=== PATIENT | female | born 1990 | race Caucasian/White ===

== ENCOUNTER 2017-08-20 23:17 | Emergency (ER) | payer OTHER ==
[~2017-08-20] VITALS: Ht 165.1 cm; Wt 52.6 kg
[~2017-08-20 23:17] MED LIST: BACTRIM DS 8001 TAB PO; PYRIDIUM100 MG PO
[2017-08-20 23:40] VITALS: BP 144/94
--- NOTE | 2017-08-21 00:14 | ED GENERAL ADULT ---
History of Present Illness General Chief Complaint: Allergy Symptoms Stated Complaint: ? ALLERGIC REACTION RASH,DIFF BREATHING PER P Source: patient, family Exam Limitations: no limitations Vital Signs & Intake/Output Vital Signs & Intake/Output Vital Signs Date Time Temp Pulse Resp B/P B/P Pulse O2 O2 Flow FiO2 Mean Ox Delivery Rate 08/20 2340 98.3 114 18 144/94 93 ED Intake and Output 08/21 0000 08/20 1200 Intake Total Output Total Balance Patient 116 lb Weight Weight Reported by Patient Measurement Method Allergies Coded Allergies: No Known Allergies (08/20/17) Reconcile Medications Cephalexin (Keflex) 500 MG CAPSULE 1 CAP PO TID UTI PHENAZOPYRIDINE HCL (Pyridium) 100 MG TAB 1 TAB PO TID DYSURIA Prednisone 50 MG TABLET 1 TAB PO DAILY ALLERGY Sulfamethoxazole/Trimethopri (Bactrim Ds 800 MG-160 MG) 1 TAB TAB 1 TAB PO BID UTI Triage Note: TRIAGE: PATIENT TO ER FROM HOME W/ HIVES TO ENTIRE CHEST, THROAT AND EARS, ALSO REPORTING SOB. LUNGS CTA, NO WHEEZING NOTED. PATIENT REPORTS SLIGHT ITCHING. SPEECH CLEAR, NO ACUTE DISTRESS, NO TONGUE SWELLING. ONSET OF ITCHING TO BILATERAL PALMS APPROX 30 MINUTES AFTER EATING COCONUT ICE CREAM (HAS EATEN IN PAST W/O DIFFICULTIES, NKA) THEN BEGAN W/ SUDDEN ONSET OF ALL OTHER HIVES. Triage Nurses Notes Reviewed? yes Onset: Abrupt Duration: hour(s): (2-3), better, continues in ED Timing: single episode today Injury Environment: home Severity: mild, moderate No Modifying Factors: none LMP (ages 10-50): unknown : No Patient currently breastfeeds: No HPI: 26 year old female with no medcal hx presents for eval of itchy rash anmd hives. pt rpeorts she felt like she was devolping a uti today with frequency urgency and dysuria. she had been takign azo without improvmenet. she had a siongle dose of cipro in her hourse whcih she took this morning for the uti. she has taken cipro once other time in the past without any issue. several hours later she devolped the hioves. they are located on the bilateral extremities and truunk. no swelling or lips tongue or thorat. she did report some sob when symptoms iniitally started but this has gone away. no previous hx of reactions. never used epi pen. no fever abdominal pain back antelmo or vaginal discharge. no other new exposures. (Bryon Dick) Past History Travel History Traveled to [place] past 21 day No Medical History Any Pertinent Medical History? see below for history Neurological: NONE EENT: NONE Cardiovascular: NONE Respiratory: NONE Gastrointestinal: NONE Hepatic: NONE Renal: NONE Musculoskeletal: NONE Psychiatric: NONE Endocrine: NONE Blood Disorders: NONE Cancer(s): NONE SUPERVISOR TESTING/Reproductive: NONE Surgical History Surgical History: non-contributory Psychosocial History What is your primary language Paraguayan Tobacco Use: Current Daily Use Daily Tobacco Use Amount/Type: =< 4 Cigarettes daily Family History Hx Contributory? No (Bryon Dick) Review of Systems Review of Systems Constitutional: Reports: no symptoms. EENTM: Reports: no symptoms. Respiratory: Reports: no symptoms. Cardiovascular: Reports: no symptoms. GI: Reports: no symptoms. Genitourinary: Reports: see HPI, dysuria, frequency, urgency. Musculoskeletal: Reports: no symptoms. Skin: Reports: see HPI, rash. Neurological/Psychological: Reports: no symptoms. Hematologic/Endocrine: Reports: no symptoms. Immunologic/Allergic: Reports: no symptoms. All Other Systems: Reviewed and Negative (Bryon Dick) Physical Exam Physical Exam General Appearance: well developed/nourished, no apparent distress, alert, awake Head: atraumatic, normal appearance Eyes: Bilateral: normal appearance, PERRL, EOMI. Ears, Nose, Throat: normal pharynx, normal ENT inspection, hearing grossly normal, no swelling of lips, tongue or throat no stridor. Neck: normal inspection, supple, full range of motion Respiratory: normal breath sounds, chest non-tender, no respiratory distress, lungs clear, no wheezing Cardiovascular: regular rate/rhythm, normal peripheral pulses Peripheral Pulses: 2+ radial (R), 2+ radial (L) Gastrointestinal: soft, non-tender Back: normal inspection, normal range of motion, no cvat Extremities: normal inspection, normal range of motion, no edema Neurologic/Psych: no motor/sensory deficits, awake, alert, oriented x 3, normal gait, normal mood/affect Skin: intact, normal color, warm/dry, rash Lymphatic: no anterior cervical corina Comments: there are multipel erythematous weals located on the bilateral extremities trunk and neck. no underlying erythema or discharge. no broken skin. Core Measures ACS in differential dx? No CVA/TIA Diagnosis: No Sepsis Present: No Sepsis Focused Exam Completed? No (Bryon Dick) Progress Differential Diagnoses I considered the following diagnoses in my evaluation of the patient: [allergic reaction, medication reaction, uti,. pyelo, uitcaria, kidney stones] Plan of Care: Orders Procedure Date/time Status Add-on Test (ER Only) 08/21 0026 Active URINE 08/20 235 Active URINALYSIS 08/20 235 Active Current Medications Sig/Ginger Start time Last Medication Dose Stop Time Status Admin Diphenhydramine HCl 50 MG ONCE ONE 08/21 0015 UNVr 08/21 (Benadryl) 08/21 0016 0014 Famotidine 20 MG ONCE ONE 08/21 0015 UNVr 08/21 (Pepcid) 08/21 0016 0014 Prednisone 40 MG ONCE ONE 08/21 0015 UNVr 08/21 08/21 0016 0014 Laboratory Tests 08/21/17 0005: Urine Color Pending, Urine Clarity Pending, Urine pH Pending, Ur Specific [place] Pending, Urine Protein Pending, Urine Ketones Pending, Urine Nitrite Pending, Urine Bilirubin Pending, Urine Urobilinogen Pending, Ur Leukocyte Esterase Pending, Ur Microscopic Pending, Urine Hemoglobin Pending, Urine Glucose Pending, Urine Test Pending no signs of swelling to lips tongue or throat. pt has uticarial rash on trunk extremitiers and neck. no respiratory distress. pt medicated with prednisone, pepcid and benadryl. urine is negative but pt too cipro today, culture sent. she will be started on keflex. contionue prednisone pepcid and benadryl. discussed return precautions in detail. pt agrees. Initial ED EKG: none (Bryon Dick) Departure Departure Disposition: HOME OR SELF CARE Condition: Stable Clinical Impression Primary Impression: Allergic reaction Qualifiers: Encounter type: initial encounter Qualified Code: T78.40XA - Allergy, unspecified, initial encounter Secondary Impressions: UTI (urinary tract infection) Qualifiers: Urinary tract infection type: site unspecified Hematuria presence: without hematuria Qualified Code: N39.0 - Urinary tract infection, site not specified Referrals: Unknown (PCP/Family) Additional Instructions: Rest and drink plenty of fluids. Take antibiotics and steroids as directed for the full course. Continue Benadryl every 6 hours as needed for itchiness. Make a follow-up with YOUr primary care doctor to review all results of today's visit. He should also have a allergy tests done. YOUR urinalysis results are not ACURATE because YOU took antibiotics today. If your symptoms do not improve he'll need a change in her antibiotics. If YOU have difficulty breathing difficulty swallowing fever or worsening abdominal pain or any other concerns return immediately. Departure Forms: Customer Survey General Discharge Information Prescriptions: Current Visit Scripts Prednisone 1 TAB PO DAILY #5 TAB Cephalexin (Keflex) 1 CAP PO TID #21 CAP (Bryon Dick) PA/RELIABILITY MANAGER Co-Sign Statement Statement: ED Attending supervision documentation- I saw and evaluated the patient. I have also reviewed all the pertinent lab results and diagnostic results. I agree with the findings and the plan of care as documented in the PA's/RELIABILITY MANAGER's documentation. x I have reviewed the ED Record and agree with the PA's/RELIABILITY MANAGER's documentation. [] Additions or exceptions (if any) to the PAs/RELIABILITY MANAGER's note and plan are summarized below: [] (Jason Abdullahi MD) Critical Care Note Critical Care Note Critical Care Time: non-applicable (Bryon Dick)
[2017-08-21] MEDS ORDERED: KEFLEX500 M1 PO (00:29)
[2017-08-21] MEDS ORDERED: PREDNISONE50 M1 PO (00:29)
== END 2017-08-21 00:34 ==
LOC: ERH 23:17
DX: T78.40XA Allergy, unspecified, initial encounter (principal); N39.0 Urinary tract infection, site not specified
CPT/HCPCS: 81003; 81025; 87086

== ENCOUNTER 2017-09-26 21:54 | Emergency (ER) | payer OTHER ==
[~2017-09-26 21:54] MED LIST changes: +KEFLEX500 M1 PO; +PREDNISONE50 M1 PO
--- NOTE | 2017-09-26 22:09 | ED GENERAL ADULT ---
History of Present Illness General Chief Complaint: Animal/Insect Bite Stated Complaint: CAT BIT TO LEFT WRIST Source: patient Exam Limitations: no limitations Vital Signs & Intake/Output Vital Signs & Intake/Output Vital Signs Date Time Temp Pulse Resp B/P B/P Pulse O2 O2 Flow FiO2 Mean Ox Delivery Rate 09/26 2311 98.0 85 18 122/87 99 Room Air 09/26 2159 97.9 87 20 128/81 98 Allergies Coded Allergies: No Known Allergies (08/20/17) Reconcile Medications Amoxicillin/Potassium Clav (Augmentin 875-125 Tablet) 875 MG-125 MG TABLET 1 TAB PO BID cat bite Cephalexin (Keflex) 500 MG CAPSULE 1 CAP PO TID UTI PHENAZOPYRIDINE HCL (Pyridium) 100 MG TAB 1 TAB PO TID DYSURIA Prednisone 50 MG TABLET 1 TAB PO DAILY ALLERGY Sulfamethoxazole/Trimethopri (Bactrim Ds 800 MG-160 MG) 1 TAB TAB 1 TAB PO BID UTI Triage Note: PER PT BIT BY UNKNOWN CAT, 1 HR RISK CONTROL DIRECTOR REPORTS UNKNOWN TETANUS Triage Nurses Notes Reviewed? yes Onset: Abrupt Duration: minute(s): Timing: single episode today : No Patient currently breastfeeds: No HPI: 26-year-old otherwise healthy female presenting with cat bites to her right upper extremity. Patient reports that she was petting and unknown stray cat when it attacked her chest prior to arrival. Unsure of her last tetanus shot. Denies numbness or paresthesias. (Sweta Small) Past History Travel History Traveled to [place] past 21 day No Medical History Any Pertinent Medical History? none Neurological: NONE EENT: NONE Cardiovascular: NONE Respiratory: NONE Gastrointestinal: NONE Hepatic: NONE Renal: NONE Musculoskeletal: NONE Psychiatric: NONE Endocrine: NONE Blood Disorders: NONE Cancer(s): NONE COMMODITY DIRECTOR/Reproductive: NONE Tetanus Vaccine: 09/26/17 Surgical History Surgical History: non-contributory Psychosocial History What is your primary language Mexican Tobacco Use: Current Not Daily Daily Tobacco Use Amount/Type: =< 4 Cigarettes daily Family History Hx Contributory? No (Sweta Small) Review of Systems Review of Systems Constitutional: Reports: no symptoms. EENTM: Reports: no symptoms. Respiratory: Reports: no symptoms. Cardiovascular: Reports: no symptoms. GI: Reports: no symptoms. Genitourinary: Reports: no symptoms. Musculoskeletal: Reports: no symptoms. Skin: Reports: see HPI. Neurological/Psychological: Reports: no symptoms. Hematologic/Endocrine: Reports: no symptoms. Immunologic/Allergic: Reports: no symptoms. (Sweta Small) Physical Exam Physical Exam General Appearance: well developed/nourished, no apparent distress, alert, awake , comfortable Head: atraumatic, normal appearance Eyes: Bilateral: normal appearance. Neck: normal inspection Respiratory: normal breath sounds, lungs clear Cardiovascular: regular rate/rhythm Gastrointestinal: soft, non-tender Back: normal inspection Extremities: multiple puncture wounds and superficial abrasions to her right upper extremity, no open lacerations, no foreign bodies. Her right upper extremity is neurovascularly intact. Neurologic/Psych: awake, alert, oriented x 3, normal gait, normal mood/affect Skin: normal color, warm/dry Core Measures ACS in differential dx? No CVA/TIA Diagnosis: No Sepsis Present: No Sepsis Focused Exam Completed? No (Sweta Small) Progress Differential Diagnoses I considered the following diagnoses in my evaluation of the patient: [Animal bite versus laceration versus rabies exposure versus tetanus exposure, low concern for fracture or foreign body] Plan of Care: Current Medications Sig/Ginger Start time Last Medication Dose Stop Time Status Admin Ampicillin Sodium/ 3,000 MG ONCE ONE 09/26 2199 UNVr 09/26 Sulbactam Sodium 09/26 (Unasyn) Sodium Chloride 100 ML (Normal Saline 0.9%) Tetanus/Diphtheria 0.5 ML ONCE ONE 09/26 2199 UNVr 09/26 Toxoids Adsorbed 09/26 (Decavac) Tetanus updated. Patient given rabies vaccine and immunoglobulin. Patient given single dose of IV Unasyn, and given Rx Augmentin. Counseled on wound care and strict return precautions. Will follow up with her PMD for reevaluation. Initial ED EKG: none (Sweta Small) Departure Departure Disposition: HOME OR SELF CARE Condition: Stable Clinical Impression Primary Impression: Cat bite Referrals: Radha Tobias (PCP/Family) Additional Instructions: Follow up for your additional rabies vaccines on September 29, October 03, and October 10. Take Augmentin as prescribed. Keep the wounds clean and dry. Follow-up with your primary care provider for reevaluation. Return to the emergency department for any new or worsening symptoms. Departure Forms: Customer Survey General Discharge Information Prescriptions: Current Visit Scripts Amoxicillin/Potassium Clav (Augmentin 875-125 Tablet) 1 TAB PO BID #20 TAB (Sweta Small) PA/MANAGER GYN Co-Sign Statement Statement: ED Attending supervision documentation- [] I saw and evaluated the patient. I have also reviewed all the pertinent lab results and diagnostic results. I agree with the findings and the plan of care as documented in the PA's/MANAGER GYN's documentation. [x] I have reviewed the ED Record and agree with the PA's/MANAGER GYN's documentation. [] Additions or exceptions (if any) to the PAs/MANAGER GYN's note and plan are summarized below: [] (Ayush FREEDMAN,Miguel Herrera) Critical Care Note Critical Care Note Critical Care Time: non-applicable (Sweta Small)
[2017-09-26] MEDS ORDERED: AUGMENTIN 875-1 EACH PO (22:54)
[2017-09-26 23:11] VITALS: BP 122/87
== END 2017-09-26 23:12 ==
LOC: ERH 21:54
DX: S41.151A Open bite of right upper arm, initial encounter (principal); W55.01XA Bitten by cat, initial encounter; Y92.9 Unspecified place or not applicable; Y93.9 Activity, unspecified
CPT/HCPCS: 90376; 90471; 90714; 96374